=== PATIENT | female | born 1975 | race Hispanic/Latino ===

== ENCOUNTER 2017-07-27 12:42 | Emergency (ER) | payer MEDICARE ==
[~2017-07-27] VITALS: Ht 157.5 cm; Wt 110.2 kg
[2017-07-27] MEDS ORDERED: KETOROLAC TROMETHAMINE 30 MG/ML VIAL IV ONE (13:15)
[2017-07-27] MEDS ORDERED: LEVOFLOXACIN 750MG/DEXTROSE PREMIX BAG 150ML IV ONE (13:30)
[2017-07-27] MEDS ORDERED: PYRIDIUM100 MG PO (15:19)
[2017-07-27] MEDS ORDERED: LEVAQUIN500 MG PO (15:19)
== END 2017-07-27 15:50 | disposition home or self-care (01) ==
LOC: FSED 12:42
DX: R30.0 Dysuria (principal); N30.91 Cystitis, unspecified with hematuria
CPT/HCPCS: 74176; 80053; 81003; 81025; 85025; 87086; 87186; 99284; J1885

== ENCOUNTER 2019-06-02 09:14 | Emergency (ER) | payer SELFPAY ==
[~2019-06-02] VITALS: Ht 157.5 cm; Wt 110.2 kg
[~2019-06-02 09:14] MED LIST: LEVAQUIN500 MG PO; PYRIDIUM100 MG PO
[2019-06-02] MEDS ORDERED: SODIUM CHLORIDE 0.9% 1000ML 1,000 ML IV STA (09:28)
--- NOTE | 2019-06-02 09:38 | NUR ---
dr. garcia performed a dental block in triage.
[2019-06-02] MEDS ORDERED: BUPIVACAINE HCL 0.25% 10ML MPF VIAL INJ ONE (09:45)
[2019-06-02 09:54] LABS: BASOPHILS % 0.4 % (0.0-1.0); EOSINOPHILS # (AUTO) 0.1 (0.0-0.4); EOSINOPHILS % 0.9 % (0.0-6.0); HEMATOCRIT 41.5 % (34.2-44.1); HEMOGLOBIN 13.7 g/dL (12.0-16.0); LYMPHOCYTES # (AUTO) 2.6 (1.0-3.2); LYMPHOCYTES % 28.7 % (18.0-39.1); MEAN CORPUSCULAR HEMOGLOBIN 29.4 pg (28-32); MEAN CORPUSCULAR VOLUME 89.1 fL (81-99); MONOCYTES # (AUTO) 0.5 (0.2-0.8); MONOCYTES % 5.5 % (4.4-11.3); NEUTROPHILS # (AUTO) 5.8 (2.1-6.9); NEUTROPHILS % 64.3 % (38.7-80.0); PLATELET COUNT 376 x10e3/uL (140-360); RED BLOOD COUNT 4.66 x10e6/uL (3.6-5.1); RED CELL DISTRIBUTION WIDTH 12.5 % (11.7-14.4)
--- NOTE | 2019-06-02 10:15 | Diagnostic Imaging Report ---
EXAMINATION: Head CT HISTORY: Worsening headache for the last week, blurry vision COMPARISON: None. TECHNIQUE: Multidetector axial images were obtained without contrast from the foramen magnum to the vertex . The images were reconstructed using brain and bone algorithms. Thin section brain images were reformatted into coronal and sagittal planes. Image quality: Motion/streaking artifact limits the evaluation of the skull base and posterior cranial fossa. Dose modulation, iterative reconstruction, and/or weight based adjustment of the mA/kV was utilized to reduce the radiation dose to as low as reasonably achievable. FINDINGS: Parenchyma: 1. No abnormal densities. 2. No mass or hemorrhage. No CT evidence of acute territorial vascular insult. Extra-axial spaces:No abnormal density. No extra-axial fluid collections Brain volume: Normal for age. Ventricles: No hydrocephalus or displacement. Arteries: No density suggestive of thrombus. Dural sinuses: No abnormal density. Foramen magnum: No mass, Chiari malformation, or basilar invagination. Sella: No obvious mass. Paranasal/mastoid sinuses: Imaged portions unremarkable. Skull/Scalp: No lytic or blastic lesions. No fractures. IMPRESSION: Normal head CT. Signed by: Dr. Caryn Olivo M.D. on 06/02/2019 10:12 AM
== END 2019-06-02 12:08 | disposition home or self-care (01) ==
LOC: ER 09:14
DX: R51 Headache (principal); K01.1 Impacted teeth; I10 Essential (primary) hypertension
CPT/HCPCS: 36415; 70450; 80053; 85025; 99283

== ENCOUNTER 2021-04-11 23:26 | Emergency (ER) | payer SELFPAY ==
[~2021-04-11] VITALS: Ht 157.5 cm; Wt 110.2 kg
[2021-04-12] MEDS ORDERED: SOTROVIMAB 500 MG in SODIUM CHLORIDE 0.9% 100 ML IV ONE (01:00)
[2021-04-12] MEDS ORDERED: METOPROLOL TART50 MG PO (02:25)
== END 2021-04-12 02:35 | disposition home or self-care (01) ==
LOC: ER 23:41
DX: R50.9 Fever, unspecified (principal); U07.1 COVID-19; R05.9 Cough, unspecified; I10 Essential (primary) hypertension; E11.9 Type 2 diabetes mellitus without complications; Z87.442 Personal history of urinary calculi
CPT/HCPCS: 99284; J7050; U0002

== ENCOUNTER 2022-10-24 14:49 | Emergency (ER) | payer OTHER ==
[~2022-10-24] VITALS: Ht 157.5 cm; Wt 110.2 kg
[~2022-10-24 14:49] MED LIST changes: +METOPROLOL TART50 MG PO
[2022-10-24] MEDS ORDERED: FAMOTIDINE 20 MG/2 ML VIAL IV STA (15:03)
[2022-10-24] MEDS ORDERED: SODIUM CHLORIDE 0.9% 1000ML 1,000 ML IV STA (15:07)
[2022-10-24] MEDS ORDERED: HYDRALAZINE HCL 20 MG/ML VIAL IV STA (15:07)
[2022-10-24] MEDS ORDERED: DIPHENHYDRAMINE HCL INJ 50 MG/ML VIAL IV ONE (15:15)
[2022-10-24] MEDS ORDERED: SODIUM CHLORIDE 0.9% 1000ML 1,000 ML IV ONE (15:15)
[2022-10-24 15:24] LABS: BASOPHILS % 0.4 % (0.0-1.0); EOSINOPHILS # (AUTO) 0.1 (0.0-0.4); EOSINOPHILS % 1.5 % (0.0-6.0); HEMATOCRIT 43.2 % (34.2-44.1); HEMOGLOBIN 14.7 g/dL (12.0-16.0); LYMPHOCYTES # (AUTO) 2.4 (1.0-3.2); LYMPHOCYTES % 35.4 % (18.0-39.1); MEAN CORPUSCULAR HEMOGLOBIN 29.2 pg (28-32); MEAN CORPUSCULAR VOLUME 85.7 fL (81-99); MONOCYTES # (AUTO) 0.4 (0.2-0.8); MONOCYTES % 6.4 % (4.4-11.3); NEUTROPHILS # (AUTO) 3.8 (2.1-6.9); PLATELET COUNT 251 x10e3/uL (140-360); RED BLOOD COUNT 5.04 x10e6/uL (3.6-5.1); RED CELL DISTRIBUTION WIDTH 11.9 % (11.7-14.4)
[2022-10-24 15:45] LABS: ALANINE AMINOTRANSFERASE 52 IU/L (0-55); ALBUMIN 3.4 g/dL (3.5-5.0); ALBUMIN/GLOBULIN RATIO 0.7 (0.8-2.0); ALKALINE PHOSPHATASE 111 IU/L (40-150); ANION GAP 15.9 mmol/L (8-16); BLOOD UREA NITROGEN 11 mg/dL (7-26); BUN/CREATININE RATIO 12 (6-25); CALCIUM 9.7 mg/dL (8.4-10.2); CARBON DIOXIDE 26 mmol/L (22-29); CHLORIDE 96 mmol/L (98-107); CREATINE KINASE 52 IU/L (29-168); CREATININE, SERUM 0.92 mg/dL (0.57-1.11); GLUCOSE 397 mg/dL (74-118); POTASSIUM 3.9 mmol/L (3.5-5.1); SODIUM 134 mmol/L (136-145)
[2022-10-24 17:06] LABS: CLARITY,URINE SL CLOUDY (CLEAR); COLOR,URINE YELLOW (YELLOW)
[2022-10-24 17:07] LABS: KETONES,URINE NEGATIVE (NEGATIVE); LEUKOCYTE ESTERASE ,URINE NEGATIVE (NEGATIVE); NITRITE,URINE NEGATIVE (NEGATIVE); PROTEIN,URINE DIPSTICK 1+ (NEGATIVE); URINE UROBILINOGEN 0.2 mg/dL (0.2 - 1)
[2022-10-24 17:10] LABS: BACTERIA,URINE MODERATE /HPF; EPITHELIAL CELLS,URINE MANY /LPF
[2022-10-24] MEDS ORDERED: METOPROLOL TART50 MG PO (17:31)
[2022-10-24] MEDS ORDERED: METFORMIN HCL500 MG PO (17:31)
[2022-10-24] MEDS ORDERED: ATORVASTATIN CA20 MG PO (17:31)
[2022-10-24] MEDS ORDERED: LEVOFLOXACIN250 MG PO (17:38)
[2022-10-24 18:00] VITALS: BP 170/93; PULSE 82; RESP 18; O2SAT 98
== END 2022-10-24 18:07 | disposition home or self-care (01) ==
LOC: ER 14:55
DX: R21 Rash and other nonspecific skin eruption (principal); I10 Essential (primary) hypertension; E11.65 Type 2 diabetes mellitus with hyperglycemia; Z79.4 Long term (current) use of insulin; Z79.84 Long term (current) use of oral hypoglycemic drugs; Z91.148 Patient's other noncompliance with medication regimen for other reason; Z79.899 Other long term (current) drug therapy
CPT/HCPCS: 0223U; 36415; 71046; 80053; 81001; 82550; 82948; 84484; 85025; 93005; 99284; J1200; J7030